=== PATIENT | male | born 1985 | race African-American/Black ===

== ENCOUNTER 2020-12-05 20:47 | Emergency (ER) | payer SELFPAY ==
[~2020-12-05] VITALS: Ht 177.8 cm; Wt 95.0 kg
[2020-12-05] MEDS: HYDROCODONE/ACETAMINOPHEN 5/325MG TABLET PO STA (22:30)
[2020-12-05] MEDS ORDERED: LIDOCAINE HCL/EPINEPHRINE 1%-EPI 1:100,000 20 ML VIAL INFIL ONE (22:30)
[2020-12-05] MEDS ORDERED: TETANUS, DIPHTHERIA, PERTUSSIS VAC/PF 0.5ML (>7YR OLD) IM ONE (22:30)
[2020-12-06] MEDS ORDERED: IBUP-2029 MT (02:10)
[2020-12-06 02:15] VITALS: BP 112/70
== END 2020-12-06 02:26 | disposition home or self-care (01) ==
LOC: ER 20:47
DX: S02.2XXA Fracture of nasal bones, initial encounter for closed fracture (principal); S01.81XA Laceration without foreign body of other part of head, initial encounter; F10.10 Alcohol abuse, uncomplicated; Y90.9 Presence of alcohol in blood, level not specified; X99.0XXA Assault by sharp glass, initial encounter; Y93.89 Activity, other specified; Y92.89 Other specified places as the place of occurrence of the external cause
CPT/HCPCS: 12002; 70450; 90471; 90715; 93005; 99285; J3490